=== PATIENT | female | born 1980 | race Caucasian/White ===

== ENCOUNTER 2016-09-29 21:32 | Emergency (ER) | payer MEDICAID ==
[2016-09-29 23:22] LABS: ABSOLUTE EOSINOPHILS # (AUTO) 0.1 10^3/uL (0.0-0.6); ABSOLUTE LYMPHOCYTES (AUTO) 1.5 10^3/uL (0.5-4.7); ABSOLUTE MONOCYTES (AUTO) 0.7 10^3/uL (0.1-1.4); ABSOLUTE NEUT (AUTO) 7.9 10^3/uL (1.7-8.2); BASOPHILS % (AUTO) 0.2 % (0-2); EOSINOPHILS % (AUTO) 1.1 % (0-6); HEMATOCRIT 41.8 % (36.0-47.0); HEMOGLOBIN 13.6 g/dL (12.0-15.5); LYMPHOCYTES % (AUTO) 14.6 % (13-45); MEAN CORPUSCULAR HEMOGLOBIN 30.6 pg (27.0-33.4); MEAN CORPUSCULAR HGB CONC 32.6 g/dL (32.0-36.0); MEAN CORPUSCULAR VOLUME 94 fl (80-97); MONOCYTES % (AUTO) 6.7 % (3-13); RED BLOOD COUNT 4.44 10^6/uL (3.72-5.28); RED CELL DISTRIBUTION WIDTH 13.9 % (11.5-14.0); SEGMENTED NEUTROPHILS % (AUTO) 77.4 % (42-78); WHITE BLOOD COUNT 10.3 10^3/uL (4.0-10.5)
[2016-09-29 23:36] LABS: ALANINE AMINOTRANSFERASE 24 U/L (9-52); ALBUMIN 4.3 g/dL (3.5-5.0); ALKALINE PHOSPHATASE 71 U/L (38-126); ANION GAP 14 (5-19); ASPARTATE AMINO TRANSFERASE 19 U/L (14-36); BILIRUBIN,DIRECT 0.3 mg/dL (0.0-0.4); BILIRUBIN,TOTAL 0.4 mg/dL (0.2-1.3); BLOOD UREA NITROGEN 20 mg/dL (7-20); CARBON DIOXIDE 25 mmol/L (22-30); CHLORIDE 103 mmol/L (98-107); CREATININE RESULT 0.64 mg/dL (0.52-1.25); GLUCOSE 98 mg/dL (75-110); LIPASE 112.5 U/L (23-300); POTASSIUM 4.1 mmol/L (3.6-5.0); SODIUM 141.6 mmol/L (137-145); TOTAL PROTEIN 7.6 g/dL (6.3-8.2)
[2016-09-30] MEDS ORDERED: LIDOCAINE 2% VISCOUS SOLN 20 ML UDCUP PO ONE (00:45)
[2016-09-30] MEDS ORDERED: METOCLOPRAMIDE HCL ORAL SOLN 10 MG/10 ML UDCUP PO ONE (00:45)
[2016-09-30] MEDS ORDERED: MAG HYDROX/AL HYDROX/SIMETH SUSP 30 ML UDCUP PO ONE (00:45)
--- NOTE | 2016-09-30 00:46 | ER Document Report ---
ED General - General Chief Complaint: Abdominal Pain Stated Complaint: ABDOMINAL PAIN/NAUSEA Time Seen by Provider: 09/30/16 00:14 Notes: Patient is a 35 year old female who presents with 2 weeks of intermittent, diffuse abdominal pain. Does describe it as a cramping, burning sensation. States it is worsened when she drinks carbonated beverages and improves on its own. She has a history of similar symptoms in the past without clear etiology. She has not seen her primary care doctor regarding today's concerns. She denies any fever, vomiting but notes that she has been nauseated. She denies any vaginal bleeding, dysuria, vaginal discharge, or lower abdominal pain that is focal. TRAVEL OUTSIDE OF THE [place] IN LAST 30 DAYS: No - Related Data Allergies/Adverse Reactions: levofloxacin [From Levaquin] Allergy (Severe, Verified 11/21/13 12:26) Anaphylaxis Past Medical History - General Information source: Patient - Social History Smoking Status: Never Smoker Frequency of alcohol use: None Drug Abuse: None Lives with: Spouse/Significant other Family History: Reviewed & Not Pertinent, CAD, CVA, DM, Hyperlipidemia, Hypertension, Thyroid Disfunction Pulmonary Medical History: Reports: Hx Asthma Renal/ Medical History: Reports: Hx Kidney Stones. Denies: Hx Peritoneal Dialysis Skin Medical History: Denies Hx MRSA Psychiatric Medical History: Reports: Hx Anxiety, Hx Depression Past Surgical History: Reports: Hx Tubal Ligation - Immunizations Immunizations up to date: Yes Hx Diphtheria, Pertussis, Tetanus Vaccination: Yes Review of Systems - Review of Systems Notes: Constitutional: Negative for fever. HENT: Negative for sore throat. Eyes: Negative for visual changes. Cardiovascular: Negative for chest pain. Respiratory: Negative for shortness of breath. Gastrointestinal: Positive for abdominal pain and nausea Genitourinary: Negative for dysuria. Musculoskeletal: Negative for back pain. Skin: Negative for rash. Neurological: Negative for headaches, weakness or numbness. 10 point ROS negative except as marked above and in HPI. Physical Exam - Vital signs Vitals: Temp Pulse Resp BP Pulse Ox 97.7 F 62 15 119/76 99 09/29/16 22:03 09/29/16 22:03 09/29/16 22:03 09/29/16 22:03 09/29/16 22:03 Interpretation: Normal Notes: PHYSICAL EXAMINATION: GENERAL: Well-appearing, well-nourished and in no acute distress. HEAD: Atraumatic, normocephalic. EYES: Pupils equal round and reactive to light, extraocular movements intact, sclera anicteric, conjunctiva are normal. ENT: nares patent, oropharynx clear without exudates. Moist mucous membranes. NECK: Normal range of motion, supple without lymphadenopathy LUNGS: Breath sounds clear to auscultation bilaterally and equal. No wheezes rales or rhonchi. HEART: Regular rate and rhythm without murmurs ABDOMEN: Soft, nontender, normoactive bowel sounds. No guarding, no rebound. No masses appreciated. EXTREMITIES: Normal range of motion, no pitting or edema. No cyanosis. NEUROLOGICAL: No focal neurological deficits. Moves all extremities spontaneously and on command. PSYCH: Normal mood, normal affect. SKIN: Warm, Dry, normal turgor, no rashes or lesions noted. Course - Re-evaluation Re-evalutation: 09/30/16 00:44 Presentation of generalized, intermittent abdominal pain. Abdominal exam is benign without any focal tenderness. Vitals are normal at the time of arrival. Laboratories are unremarkable without evidence of , or leukocytosis. Denies urinary symptoms or flank pain. Patient is overall very well in appearance. Based on clinical history and examination I do not suspect an acute appendicitis, tubo-ovarian abscess, related pathology, pelvic inflammatory disease, mesenteric ischemia, or pyelonephritis. At this time will discharge with return precautions and follow-up recommendations. Verbal discharge instructions given a the bedside and opportunity for questions given. Medication warnings reviewed. Patient is in agreement with this plan and has verbalized understanding of return precautions and the need for primary care follow-up in the next 24-72 hours. - Vital Signs Vital signs: Temp Pulse Resp BP Pulse Ox 97.7 F 78 16 105/65 100 09/30/16 01:00 09/30/16 01:00 09/30/16 01:00 09/30/16 01:00 09/30/16 01:00 - Laboratory Result Diagrams: 09/29/16 23:11 09/29/16 23:11 Discharge - Discharge Clinical Impression: Abdominal pain Qualifiers: Abdominal location: generalized Qualified Code(s): R10.84 - Generalized abdominal pain Condition: Good Disposition: HOME, SELF-CARE Additional Instructions: You have been seen in the Emergency Department (ED) for abdominal pain. Your evaluation did not identify a clear cause of your symptoms but was generally reassuring. Start taking famotidine 20 mg in the morning and 20 mg at night. This medication can be purchased directly [id number]. Take it for the next 2 weeks and see if this improves your symptoms. Please follow up with your doctor as soon as possible regarding today's emergent visit and the symptoms that are bothering you. Return to the ED if your abdominal pain worsens or fails to improve, you develop bloody vomiting, bloody diarrhea, you are unable to tolerate fluids due to vomiting, fever greater than 101, or other symptoms that concern you. Referrals: TRAV GOYAL MD [Primary Care Provider] - Follow up as needed
[2016-09-30 01:08] VITALS: BP 105/65
== END 2016-09-30 01:08 | disposition home or self-care (01) ==
LOC: ER 21:32
DX: R10.84 Generalized abdominal pain (principal); J45.909 Unspecified asthma, uncomplicated; Z88.1 Allergy status to other antibiotic agents; Z87.442 Personal history of urinary calculi; Z98.51 Tubal ligation status
CPT/HCPCS: 99284; 36415; 83690; 84703; 85025; 80053; J3490 ×3

== ENCOUNTER 2016-12-05 02:38 | Emergency (ER) | payer MEDICAID ==
--- NOTE | 2016-12-05 03:03 | ER Document Report ---
ED General - General Chief Complaint: Leg Pain Stated Complaint: LEG PAIN Time Seen by Provider: 12/05/16 02:52 Notes: Patient is a 35-year-old female comes emergency department with 2 complaints. First complaint is pain along the inner part of her right knee. Symptoms have been going on for about 1 month. She states frequently it hurts to walk and it hurts the worst when she gets up in the morning. She denies any remembered injury. She denies history of the same. Secondarily she reports that she has congestion, cough, and right-sided chest pain for a few days. She denies fever , difficulty breathing, vomiting, abdominal pain. She denies any daily medications. LMP about 6 weeks ago. She is not on contraceptive. TRAVEL OUTSIDE OF THE [place] IN LAST 30 DAYS: No - Related Data Allergies/Adverse Reactions: levofloxacin [From Levaquin] Allergy (Severe, Verified 11/21/13 12:26) Anaphylaxis Past Medical History - General Information source: Patient - Social History Smoking Status: Never Smoker Frequency of alcohol use: None Drug Abuse: None Lives with: Family Family History: Reviewed & Not Pertinent, CAD, CVA, DM, Hyperlipidemia, Hypertension, Thyroid Disfunction Patient has suicidal ideation: No Patient has homicidal ideation: No Pulmonary Medical History: Reports: Hx Asthma Renal/ Medical History: Reports: Hx Kidney Stones. Denies: Hx Peritoneal Dialysis Skin Medical History: Denies Hx MRSA Psychiatric Medical History: Reports: Hx Anxiety, Hx Depression Past Surgical History: Reports: Hx Tubal Ligation - Immunizations Immunizations up to date: Yes Hx Diphtheria, Pertussis, Tetanus Vaccination: Yes Review of Systems - Review of Systems Constitutional: No symptoms reported EENT: See HPI Cardiovascular: See HPI Respiratory: See HPI Gastrointestinal: No symptoms reported Genitourinary: No symptoms reported Female Genitourinary: No symptoms reported Musculoskeletal: See HPI Skin: No symptoms reported Hematologic/Lymphatic: No symptoms reported Neurological/Psychological: No symptoms reported Physical Exam - Vital signs Vitals: Temp Pulse Resp BP Pulse Ox 97.8 F 94 18 123/80 100 12/05/16 02:44 12/05/16 02:44 12/05/16 02:44 12/05/16 02:44 12/05/16 02:44 - General General appearance: Appears well In distress: None - HEENT Head: Normocephalic, Atraumatic Eyes: Normal Conjunctiva: Normal Eyelashes: Normal Pupils: PERRL Sinus: Maxillary - Bilateral mild maxillary sinus tenderness Nasal: Other - Mild bilateral nasal congestion Mouth/Lips: Normal Mucous membranes: Normal Pharynx: Erythema - Very mild. No: Exudate, Tonsillar hypertrophy, Uvular edema , Potential airway comprom. Neck: Normal - Respiratory Respiratory status: No respiratory distress Chest status: Tender - chest wall pain on the right mid anterior chest wall, reproducible, no crepitus, abnormal heat, or swelling Breath sounds: Normal. No: Decreased air movement, Wheezing - Cardiovascular Rhythm: Regular. No: Tachycardia Heart sounds: Normal auscultation, S1 appreciated, S2 appreciated - Abdominal Inspection: Normal Tenderness: Nontender. No: Tender, Guarding - Back Back: Normal, Nontender. No: Tender - Extremities General upper extremity: Normal inspection, Nontender, Normal ROM, Normal strength General lower extremity: Other - Patient with slight tenderness with Gabe testing of the right knee, there is a slight click when this is performed. Patient has full range of motion of the knee, there is some medial tenderness over the inferior aspect of the knee, no erythema, no abnormal heat, no significant swelling. Normal distal neurovascular exam. Normal lower extremity examination otherwise. - Neurological Neuro grossly intact: Yes Cognition: Normal Orientation: AAOx4 [place] Coma Scale Eye Opening: Spontaneous [place] Coma Scale Verbal: Oriented Court[place] Coma Scale Motor: Obeys Commands Court[place] Coma Scale Total: 15 Speech: Normal Motor strength normal: LUE, RUE, LLE, RLE Sensory: Normal - Psychological Associated symptoms: Normal affect, Normal mood - Skin Skin Temperature: Warm Skin Moisture: Dry Skin Color: Normal Course - Re-evaluation Re-evalutation: EKG shows sinus rhythm, no T-wave inversions or ST segment changes in consecutive leads, normal axis, unremarkable. Machine read as normal. Chest x- ray is also unremarkable. Patient with chest wall tenderness on examination of the right side of the chest. Knee x-rays unremarkable. Examination of the knee suggests a meniscal injury. Patient can ambulate without any difficulty. No significant tenderness. Does not require a brace. Giving anti-inflammatories, gave a handout from up-to- date website on meniscal tears, discussed treatment and exercises for this which were demonstrated, discussed orthopedic follow-up. Patient also has tenderness over the maxillary sinuses with symptoms of sinusitis. After discussion patient will be treated with antibiotics for this. Discussed primary care follow-up and return precautions. Patient states understanding and agreement. - Vital Signs Vital signs: Temp Pulse Resp BP Pulse Ox 97.8 F 78 18 110/78 98 12/05/16 02:44 12/05/16 04:34 12/05/16 04:34 12/05/16 04:34 12/05/16 04:34 Discharge - Discharge Clinical Impression: Cough Right knee pain Qualifiers: Chronicity: acute Qualified Code(s): M25.561 - Pain in right knee Sinusitis Qualifiers: Sinusitis location: maxillary Chronicity: acute Recurrence: non-recurrent Qualified Code(s): J01.00 - Acute maxillary sinusitis, unspecified Condition: Stable Disposition: HOME, SELF-CARE Additional Instructions: Your EKG, chest x-ray, and knee x-rays do not show any concerning abnormalities. Your examination is consistent with a sinus infection, I also suspect you have a meniscus tear based on your symptoms and your knee examination. I recommend taking the anti-inflammatory as prescribed, apply ice to your knee, perform muscles to strengthen your thigh muscle such as straight leg raises as you were shown. If symptoms continue I recommend following up with orthopedics. Take Augmentin antibiotic as prescribed for your sinuses. Return to emergency department for any concerning or worsening symptoms including difficulty breathing, redness of your knee, fever, or any other concerning symptoms. Prescriptions: Amox Tr/Potassium Clavulanate [Augmentin 875-125 Tablet] 1 tab PO BID 7 Days tablet Naproxen [Naprosyn 375 Mg Tablet] 375 mg PO BID #20 tablet Referrals: CONSUELO RAIN MD [ACTIVE STAFF] - Follow up as needed
--- NOTE | 2016-12-05 04:16 | RADIOLOGY REPORT (SQ) ---
EXAM DESCRIPTION: CHEST PA/LAT COMPLETED DATE/TIME: 12/05/2016 3:53 am REASON FOR STUDY: chest pain COMPARISON: 02.21.12 EXAM PARAMETERS: NUMBER OF VIEWS: two views TECHNIQUE: Digital Frontal and Lateral radiographic views of the chest acquired. RADIATION DOSE: NA LIMITATIONS: none FINDINGS: LUNGS AND PLEURA: No opacities, masses or pneumothorax. No pleural effusion. Mild hyperin flation. MEDIASTINUM AND HILAR STRUCTURES: No masses or contour abnormalities. HEART AND VASCULAR STRUCTURES: Heart normal size. No evidence for failure. BONES: No acute findings. HARDWARE: None in the chest. OTHER: No other significant finding. IMPRESSION: NO SIGNIFICANT RADIOGRAPHIC FINDING IN THE CHEST. TECHNICAL DOCUMENTATION: JOB ID: [id number] [employer]- All Rights Reserved
--- NOTE | 2016-12-05 04:17 | RADIOLOGY REPORT (SQ) ---
EXAM DESCRIPTION: KNEE RIGHT 4 VIEWS COMPLETED DATE/TIME: 12/05/2016 3:53 am REASON FOR STUDY: right knee pain (medial) COMPARISON: None. NUMBER OF VIEWS: Four views. TECHNIQUE: AP, lateral, and both oblique radiographic images acquired of the right knee. LIMITATIONS: None. FINDINGS: MINERALIZATION: Normal. BONES: No acute fracture or dislocation. No worrisome bone lesions. Small tug exostosis of the prox imal fibular diaphysis posteriorly. JOINT: No effusion. SOFT TISSUES: No soft tissue swelling. No radio-opaque foreign body. OTHER: No other significant finding. IMPRESSION: NEGATIVE STUDY OF THE RIGHT KNEE. NO RADIOGRAPHIC EVIDENCE OF ACUTE INJURY. TECHNICAL DOCUMENTATION: JOB ID: [id number] [employer]- All Rights Reserved
[2016-12-05 04:35] VITALS: BP 110/78
--- NOTE | 2016-12-05 21:04 | EKG REPORT ---
SEVERITY:- NORMAL ECG - SINUS RHYTHM : Confirmed by: Amie Ceballos 05-Dec-2016 21:03:40
== END 2016-12-05 04:34 | disposition home or self-care (01) ==
LOC: ER 02:38
DX: J01.00 Acute maxillary sinusitis, unspecified (principal); M25.561 Pain in right knee; R05 Cough
CPT/HCPCS: 71020; 81025; 93005; 93010; 99284

== ENCOUNTER 2017-10-16 18:44 | Emergency (ER) | payer MEDICAID ==
[2017-10-16 18:59] VITALS: BP 131/75
[2017-10-16] MEDS ORDERED: LIDOCAINE 2% VISCOUS SOLN 20 ML UDCUP PO ONE (19:32)
--- NOTE | 2017-10-16 19:35 | ER Document Report ---
HPI - HPI Patient complains to provider of: Toothache lower left side Onset: This morning Onset/Duration: Gradual Quality of pain: Throbbing Pain Level: 5 Context: 36-year-old with tooth decay has increased dental pain lower left second molar. Other molars have been extracted. No facial swelling or fever. Associated Symptoms: None Exacerbated by: Other - Chewing Relieved by: Denies Similar symptoms previously: Yes Recently seen / treated by doctor: No - ROS ROS below otherwise negative: Yes Systems Reviewed and Negative: Yes All other systems reviewed and negative - REPRODUCTIVE LMP: 10/07/2017 Reproductive: DENIES: : Past Medical History - General Information source: Patient - Social History Smoking Status: Current Every Day Smoker Chew tobacco use (# tins/day): No Frequency of alcohol use: None Drug Abuse: None Lives with: Family Family History: Reviewed & Not Pertinent, CAD, CVA, DM, Hyperlipidemia, Hypertension, Thyroid Disfunction Patient has suicidal ideation: No Patient has homicidal ideation: No Pulmonary Medical History: Reports: Hx Asthma Renal/ Medical History: Reports: Hx Kidney Stones. Denies: Hx Peritoneal Dialysis Skin Medical History: Denies Hx MRSA Psychiatric Medical History: Reports: Hx Anxiety, Hx Depression Past Surgical History: Reports: Hx Tubal Ligation - Immunizations Immunizations up to date: Yes Hx Diphtheria, Pertussis, Tetanus Vaccination: Yes Vertical Provider Document - CONSTITUTIONAL Agree With Documented VS: Yes Exam Limitations: No Limitations General Appearance: No Apparent Distress - INFECTION CONTROL TRAVEL OUTSIDE OF THE [place] IN LAST 30 DAYS: No - HEENT Notes: decay 2nd molar lower left. no abscess - NEURO Level of Consciousness: Alert - DERM Integumentary: No Rash Course - Vital Signs Vital signs: Temp Pulse Resp BP Pulse Ox 98.7 F 80 20 131/75 H 100 10/16/17 18:58 10/16/17 18:58 10/16/17 18:58 10/16/17 18:58 10/16/17 18:58 Discharge - Discharge Clinical Impression: dental pain and decay Condition: Good Disposition: HOME, SELF-CARE Instructions: [facility], Dentist, Penicillin V K (OM), Toothache (OM), Topical Lidocaine (OM), Warm Packs (OM) Additional Instructions: Warm compress Penicillin Motrin Tylenol Lidocaine to numb the area See the dentist Return to emergency room worsening of the symptoms Prescriptions: Ibuprofen [Motrin 800 mg Tablet] 800 mg PO Q8HP PRN #30 tablet PRN Reason: Penicillin V Potassium [Penicillin Vk 500 mg Tablet] 500 mg PO QID #40 tablet Referrals: TRAV GOYAL MD [Primary Care Provider] - Follow up as needed
== END 2017-10-16 19:43 | disposition home or self-care (01) ==
LOC: ER 18:44
DX: K08.89 Other specified disorders of teeth and supporting structures (principal)
CPT/HCPCS: 99282; J3490

== ENCOUNTER 2018-12-08 22:36 | Emergency (ER) | payer SELFPAY ==
[2018-12-09 00:05] LABS: ABSOLUTE EOSINOPHILS # (AUTO) 0.1 10^3/uL (0.0-0.6); ABSOLUTE LYMPHOCYTES (AUTO) 3.6 10^3/uL (0.5-4.7); ABSOLUTE MONOCYTES (AUTO) 1.2 10^3/uL (0.1-1.4); ABSOLUTE NEUT (AUTO) 4.5 10^3/uL (1.7-8.2); BASOPHILS % (AUTO) 0.4 % (0-2); EOSINOPHILS % (AUTO) 1.5 % (0-6); HEMATOCRIT 40.9 % (36.0-47.0); HEMOGLOBIN 13.9 g/dL (12.0-15.5); LYMPHOCYTES % (AUTO) 38.4 % (13-45); MEAN CORPUSCULAR HEMOGLOBIN 31.5 pg (27.0-33.4); MEAN CORPUSCULAR HGB CONC 33.9 g/dL (32.0-36.0); MEAN CORPUSCULAR VOLUME 93 fl (80-97); MONOCYTES % (AUTO) 12.2 % (3-13); PLATELET COUNT 303 10^3/uL (150-450); RED BLOOD COUNT 4.41 10^6/uL (3.72-5.28); RED CELL DISTRIBUTION WIDTH 14.4 % (11.5-14.0); SEGMENTED NEUTROPHILS % (AUTO) 47.5 % (42-78); TOTAL CELLS COUNTED % (AUTO) 100 %; WHITE BLOOD COUNT 9.4 10^3/uL (4.0-10.5)
[2018-12-09 00:26] LABS: APPEARANCE,URINE SLIGHTLY-CLOUDY; BILIRUBIN,URINE NEGATIVE (NEGATIVE); COLOR,URINE YELLOW; GLUCOSE, URINE NEGATIVE (NEGATIVE); KETONES,URINE NEGATIVE (NEGATIVE); LEUKOCYTE ESTERASE,URINE SMALL (NEGATIVE); NITRITE,URINE POSITIVE (NEGATIVE); PROTEIN,URINE NEGATIVE (NEGATIVE); URINE BARBITURATES SCREEN NEGATIVE; URINE BENZODIAZEPINES SCREEN UNCONFIRMED POSITIVE; URINE COCAINE SCREEN NEGATIVE; URINE MARIJUANA (THC) SCREEN NEGATIVE; URINE METHADONE SCREEN NEGATIVE; URINE PHENCYCLIDINE SCREEN NEGATIVE; URINE SPECIFIC GRAVITY 1.026; UROBILINOGEN,URINE NEGATIVE mg/dL (<2.0)
[2018-12-09 00:33] LABS: ALBUMIN 4.3 g/dL (3.5-5.0); ALKALINE PHOSPHATASE 76 U/L (38-126); ANION GAP 12 (5-19); ASPARTATE AMINO TRANSFERASE 29 U/L (14-36); BILIRUBIN,DIRECT 0.2 mg/dL (0.0-0.4); BILIRUBIN,TOTAL 0.3 mg/dL (0.2-1.3); BLOOD UREA NITROGEN 21 mg/dL (7-20); CALCIUM 9.7 mg/dL (8.4-10.2); CARBON DIOXIDE 23 mmol/L (22-30); CHLORIDE 104 mmol/L (98-107); GLUCOSE 82 mg/dL (75-110); POTASSIUM 3.9 mmol/L (3.6-5.0)
[2018-12-09 00:35] LABS: ACETAMINOPHEN < 10 ug/mL (10-30); ALCOHOL < 10 mg/dL (NONE DETECTED); SALICYLATE < 1.0 mg/dL (2.0-20.0)
[2018-12-09] MEDS ORDERED: CEPHALEXIN 500 MG CAPSULE PO ONE (02:25)
--- NOTE | 2018-12-09 06:58 | EKG REPORT ---
SEVERITY:- NORMAL ECG - SINUS RHYTHM : Confirmed by: Zia Campbell MD 09-Dec-2018 06:57:59
--- NOTE | 2018-12-09 07:30 | ER Document Report ---
ED Psych Disorder / Suicide - General TRAVEL OUTSIDE OF THE [place] IN LAST 30 DAYS: No <NAYA MILLER - Last Filed: 12/09/18 20:15> <JANNETTE MCCARTHY - Last Filed: 12/11/18 20:24> - General Chief Complaint: Psych Problem Stated Complaint: IVC Time Seen by Provider: 12/09/18 00:42 Notes: Patient is a 37-year-old female presents to the emergency department with IVC paperwork already filled out by mansi Zhu. IVC paperwork states that the patient is hearing children and babies crying that are asking her for help. Patient believes that there are people in her [place] and there are cameras watching her. Patient voices to me when the Police Department picked her up she felt as though she would like to jump out of the car and run into traffic. Patient is calm and cooperative during assessment. Patient's denying any homicidal ideations. Patient's denying any chest pain, nausea, vomiting, diarrhea, abdominal pain, dysuria. (NAYA MILLER) - Related Data Allergies/Adverse Reactions: levofloxacin [From Levaquin] Allergy (Severe, Verified 10/16/17 18:45) Anaphylaxis Past Medical History - General Information source: Patient, Transfer Record - Social History Smoking Status: Current Every Day Smoker Chew tobacco use (# tins/day): No Frequency of alcohol use: None Drug Abuse: None Family History: Reviewed & Not Pertinent, CAD, CVA, DM, Hyperlipidemia, Hypertension, Thyroid Disfunction Patient has suicidal ideation: Yes Patient has homicidal ideation: No Pulmonary Medical History: Reports: Hx Asthma Renal/ Medical History: Reports: Hx Kidney Stones. Denies: Hx Peritoneal Beth lysis Skin Medical History: Denies Hx MRSA Psychiatric Medical History: Reports: Hx Anxiety, Hx Depression Past Surgical History: Reports: Hx Tubal Ligation - Immunizations Immunizations up to date: Yes Hx Diphtheria, Pertussis, Tetanus Vaccination: Yes <NAYA MILLER - Last Filed: 12/09/18 20:15> Review of Systems - Review of Systems Constitutional: denies: Fever EENT: No symptoms reported Cardiovascular: No symptoms reported Respiratory: No symptoms reported Gastrointestinal: No symptoms reported Genitourinary: No symptoms reported Female Genitourinary: No symptoms reported Musculoskeletal: No symptoms reported Skin: No symptoms reported Hematologic/Lymphatic: No symptoms reported Neurological/Psychological: See HPI <SAMEER MILLERCYNTHIADANA - Last Filed: 12/09/18 20:15> Physical Exam <NAYA MILLER - Last Filed: 12/09/18 20:15> - Vital signs Vitals: Temp Pulse Resp BP Pulse Ox 98.0 F 97 18 96/78 L 98 12/08/18 23:00 12/08/18 23:00 12/08/18 23:00 12/08/18 23:00 12/08/18 23:00 - Notes Notes: GENERAL: Alert, interacts well. No acute distress. HEAD: Normocephalic, atraumatic. EYES: Pupils equal, round, and reactive to light. Extraocular movements intact. ENT: Oral mucosa moist, tongue midline. NECK: Full range of motion. Supple. Trachea midline. LUNGS: Clear to auscultation bilaterally, no wheezes, rales, or rhonchi. No respiratory distress. HEART: Regular rate and rhythm. No murmur ABDOMEN: Soft, non-tender. Non-distended. Bowel sounds present in all 4 quadrants. EXTREMITIES: Moves all 4 extremities spontaneously. No edema, normal radial and dorsalis pedis pulses bilaterally. No cyanosis. BACK: no cervical, thoracic, lumbar midline tenderness. No saddle anesthesia, normal distal neurovascular exam. NEUROLOGICAL: Alert and oriented x3. Normal speech. cranial nerves II through XII grossly intact PSYCH: Flat affect, depressed mood. SKIN: Warm, dry, normal turgor. No rashes or lesions noted. (PAULNAYA) Course - Laboratory Result Diagrams: 12/08/18 23:35 12/08/18 23:35 <NAYA MILLER - Last Filed: 12/09/18 20:15> - Laboratory Result Diagrams: 12/08/18 23:35 12/08/18 23:35 <JANNETTE MCCARTHY - Last Filed: 12/11/18 20:24> - Re-evaluation Re-evalutation: 12/09/18 07:29 Laboratory 12/08/18 12/08/18 12/08/18 23:35 23:35 23:35 WBC 9.4 RBC 4.41 Hgb 13.9 Hct 40.9 MCV 93 MCH 31.5 MCHC 33.9 RDW 14.4 H Plt Count 303 Lymph % (Auto) 38.4 Cecil % (Auto) 12.2 Eos % (Auto) 1.5 Baso % (Auto) 0.4 Absolute Neuts (auto) 4.5 Absolute Lymphs (auto) 3.6 Absolute Monos (auto) 1.2 Absolute Eos (auto) 0.1 Absolute Basos (auto) 0.0 Seg Neutrophils % 47.5 Sodium 138.5 Potassium 3.9 Chloride 104 Carbon Dioxide 23 Anion Gap 12 BUN 21 H Creatinine 0.73 Est GFR ( Amer) > 60 Est GFR (MDRD) Non-Af > 60 Glucose 82 Calcium 9.7 Total Bilirubin 0.3 Direct Bilirubin 0.2 Neonat Total Bilirubin Not Reportable Neonat Direct Bilirubin Not Reportable Neonat Indirect Bili Not Reportable AST 29 ALT 15 Alkaline Phosphatase 76 Total Protein 7.0 Albumin 4.3 Serum HCG, Qual NEGATIVE Urine Color Urine Appearance Urine pH Ur Specific Mabel Urine Protein Urine Glucose (UA) Urine Ketones Urine Blood Urine Nitrite Urine Bilirubin Urine Urobilinogen Ur Leukocyte Esterase Urine WBC (Auto) Urine RBC (Auto) Urine Bacteria (Auto) Squamous Epi Cells Auto Urine Ascorbic Acid Salicylates < 1.0 L Urine Opiates Screen Urine Methadone Screen Acetaminophen < 10 L Ur Barbiturates Screen Ur Phencyclidine Scrn Ur Amphetamines Screen U Benzodiazepines Scrn Urine Cocaine Screen U Marijuana (THC) Screen Serum Alcohol < 10 12/08/18 12/08/18 23:35 23:35 WBC RBC Hgb Hct MCV MCH MCHC RDW Plt Count Lymph % (Auto) Cecil % (Auto) Eos % (Auto) Baso % (Auto) Absolute Neuts (auto) Absolute Lymphs (auto) Absolute Monos (auto) Absolute Eos (auto) Absolute Basos (auto) Seg Neutrophils % Sodium Potassium Chloride Carbon Dioxide Anion Gap BUN Creatinine Est GFR ( Amer) Est GFR (MDRD) Non-Af Glucose Calcium Total Bilirubin Direct Bilirubin Neonat Total Bilirubin Neonat Direct Bilirubin Neonat Indirect Bili AST ALT Alkaline Phosphatase Total Protein Albumin Serum HCG, Qual Urine Color YELLOW Urine Appearance SLIGHTLY-CLOUDY Urine pH 5.0 Ur Specific Mabel 1.026 Urine Protein NEGATIVE Urine Glucose (UA) NEGATIVE Urine Ketones NEGATIVE Urine Blood MODERATE H Urine Nitrite POSITIVE H Urine Bilirubin NEGATIVE Urine Urobilinogen NEGATIVE Ur Leukocyte Esterase SMALL H Urine WBC (Auto) 11 Urine RBC (Auto) 5 Urine Bacteria (Auto) 3+ Squamous Epi Cells Auto 1 Urine Ascorbic Acid NEGATIVE Salicylates Urine Opiates Screen NEGATIVE Urine Methadone Screen NEGATIVE Acetaminophen Ur Barbiturates Screen NEGATIVE Ur Phencyclidine Scrn NEGATIVE Ur Amphetamines Screen U Benzodiazepines Scrn UNCONFIRMED POSITIVE Urine Cocaine Screen NEGATIVE U Marijuana (THC) Screen NEGATIVE Serum Alcohol Patient's urine does show signs of infection, will treat with initial dose of Keflex in the emergency department. Patient currently medically cleared for psychiatric evaluation. (NAYA MILLER) - Vital Signs Vital signs: Temp Pulse Resp BP Pulse Ox 98.5 F 80 14 126/74 H 100 12/11/18 18:00 12/11/18 18:00 12/11/18 14:27 12/11/18 18:00 12/11/18 18:00 - Laboratory Laboratory results interpreted by me: 12/08/18 12/08/18 12/08/18 23:35 23:35 23:35 RDW 14.4 H BUN 21 H Urine Blood MODERATE H Urine Nitrite POSITIVE H Ur Leukocyte Esterase SMALL H Salicylates < 1.0 L Acetaminophen < 10 L Discharge <NAYA MILLER - Last Filed: 12/09/18 20:15> <JANNETTE MCCARTHY - Last Filed: 12/11/18 20:24> - Discharge Clinical Impression: Suicidal ideation Urinary tract infection Qualifiers: Urinary tract infection type: acute cystitis Hematuria presence: without hematuria Qualified Code(s): N30.00 - Acute cystitis without hematuria Schizophrenia Qualifiers: Schizophrenia type: unspecified Qualified Code(s): F20.9 - Schizophrenia, unspecified Condition: Stable Disposition: PSYCH HOSP/UNIT Prescriptions: Cephalexin Monohydrate [Keflex 500 mg Capsule] 500 mg PO BID 7 Days #14 capsule
--- NOTE | 2018-12-09 09:11 | PSYCHOLOGICAL NOTE ---
Psych Note - Psych Note Date seen by psych provider: 12/09/18 Time seen by psych provider: 07:45 Psych Note: Substance abuse Medication recommendations per [facility]'s contracted psychiatrist Dr. Raeann NEVES are as follows Thorazine 50 mg every 6 hours Cogentin 1 mg daily Impression\plan: Patient is recommended to continue under IVC. Patient is experiencing auditory and visual hallucinations, as well as delusional thought processes due to methamphetamine use. Medication recommendations have been provided. Patient will be reevaluated per Dr. Dodd was consulted and the care management of this patient; attending physicians in agreement with recommendations and disposition.
--- NOTE | 2018-12-09 10:02 | ER Document Report ---
Doctor's Note Notes: 12/09/18 10:01 37-year-old female who presents with hallucinations. Possible urinary tract infection. Keflex has been started. The psychology/psychiatry team is seen and assessed the patient would like to start the patient on Thorazine and Cogentin. Urine culture is pending.
[2018-12-09] MEDS: BENZTROPINE MESYLATE 1 MG TABLET PO SCH (10:30)
[2018-12-09] MEDS: CHLORPROMAZINE HCL 50 MG TABLET PO SCH ×3 (10:31→23:06)
[2018-12-09] MEDS: CEPHALEXIN 500 MG CAPSULE PO SCH ×2 (14:40→23:06)
[2018-12-10] MEDS: CHLORPROMAZINE HCL 50 MG TABLET PO SCH ×2 (04:50→09:39)
[2018-12-10] MEDS: BENZTROPINE MESYLATE 1 MG TABLET PO SCH (09:01)
[2018-12-10] MEDS: CEPHALEXIN 500 MG CAPSULE PO SCH ×2 (09:01→18:21)
[2018-12-10] MEDS ORDERED: CHLORPROMAZINE HCL 50 MG TABLET PO PRN (09:52)
--- NOTE | 2018-12-10 10:20 | ER Document Report ---
Doctor's Note Notes: 12/10/18 10:18 I wanted to evaluate the patient. She was sleeping. She woke easily to verbal stimuli. Asked her if she had any questions or concerns, she denied any. However, she refused to talk at all beyond that. She states she is not interested in talking to psychosocial for evaluation. She did eat a small amount of her breakfast, otherwise refused to engage. She had herself back under the blankets. At this point patient refuses to engage in any sort of evaluation. Based on this, agree with placement.
--- NOTE | 2018-12-10 16:28 | PSYCHOLOGICAL NOTE ---
Psych Note - Psych Note Date seen by psych provider: 12/10/18 Time seen by psych provider: 08:05 Psych Note: Substance abuse R/O bipolar disorder Medication recommendations per [facility]'s contracted psychiatrist Dr. Raeann NEVES are as follows Thorazine 50 mg every 6 hours as needed Cogentin 1 mg daily Impression\plan: Patient is recommended continue under IVC. Patient refuses to engage with clinician. Patient is very irritable continues to sleep. Medication recommendations have been adjusted. There is some concern the patient has been experiencing increase in depression that she verbalized suicidal ideation upon initial arrival however does not discussed further. Patient will be reevaluated. Dr. Dodd was consulted and the care management of this patient; attending physicians in agreement with recommendations and disposition.
[2018-12-11] MEDS: CEPHALEXIN 500 MG CAPSULE PO SCH ×2 (09:13→17:50)
[2018-12-11] MEDS: BENZTROPINE MESYLATE 1 MG TABLET PO SCH (09:14)
--- NOTE | 2018-12-11 12:35 | ER Document Report ---
Doctor's Note Notes: 12/11/18 12:34 Patient remains here in the hospital awaiting placement. She still refuses to speak to me. She states that she "knows why this is happening" and states it has nothing to do with the manner in which she presented here. I asked her if she would elaborate, she refuses. Otherwise she states she has no other official complaints or concerns. She is eating and drinking. No questions today. Is a very guarded 37-year-old female who appears older than her stated age. This is a 37-year-old female who presents with psychosis, likely substance abuse related. The patient refuses to engage in any way. Awaiting placement.
--- NOTE | 2018-12-11 13:02 | PSYCHOLOGICAL NOTE ---
Psych Note - Psych Note Date seen by psych provider: 12/11/18 Time seen by psych provider: 08:33 - Chart review at 0833. Evaluation from 925- 930. Psych Note: Presenting Problem: IVC, meth induced psychosis, delusional, paranoid, SI. Continued to endorse delusional thought processes today about "the people who aren't from around here that moved in by her parents, she hears babies crying out to her mother, knows these people are holding the kids under the house, to rturing then, she's meant to hear it, others hear it but don't want to admit it and that's why those people have put her here." She denied previous MH hospitalizations. She stated this was not related to meth use and commented "I don't do it like that anymore, I have never experienced anything like this before, I am not lying I am a 39 year old woman with 2 children of my own." The TV was on with news and this seemed to distract her even immediately upon waking up. Diagnosis: Methamphetamine Induced Psychotic Disorder R/O Bipolar Disorder Impression/Plan: Recommendation to maintain IVC. Patient continued to endorse delusional thinking. She became irritable but was still cooperative. She continued to sleep most of the day. Consulted with Dr. Dodd regarding the management and care of patient. ED Physician in agreement with recommendations.
[2018-12-11 19:26] VITALS: BP 126/74
--- NOTE | 2018-12-11 20:23 | ER Document Report ---
Doctor's Note Notes: 12/11/18 20:22 Patient has been accepted by psychiatry at [facility] for schizophrenia and suicidal ideation. She is stable for transport, she has called her family to let her know that she is being transported. Patient still disagrees with choice to transport her. [facility]'s department is at bedside transport her at this time.
== END 2018-12-11 20:20 ==
LOC: ER 22:36
DX: R45.851 Suicidal ideations (principal); F20.9 Schizophrenia, unspecified; N30.00 Acute cystitis without hematuria; F17.200 Nicotine dependence, unspecified, uncomplicated; Z98.51 Tubal ligation status
CPT/HCPCS: 36415; 80053; 80307; 81001; 84703; 85025; 87086; 87088; 87186; 93005; 93010; 99285

== ENCOUNTER 2020-02-01 18:38 | Emergency (ER) | payer SELFPAY ==
[2020-02-01 19:09] VITALS: BP 119/81
--- NOTE | 2020-02-01 19:31 | ER Document Report ---
ED Medical Screen (RME) - General Chief Complaint: Flank Pain Stated Complaint: RIGHT FLANK PAIN Time Seen by Provider: 02/01/20 19:28 Mode of Arrival: Ambulatory Information source: Patient Notes: 39-year-old female patient with history of kidney stones presenting to the emergency department chief complaint of right flank pain. Patient reports pain ongoing for the last 2 to 3 weeks. She reports dysuria and urinary frequency. Denies any fever or chills. Has not had any nausea, vomiting or diarrhea. Patient alert, oriented, no acute distress noted. Smiling in triage. I have greeted and performed a rapid initial assessment of this patient. A comprehensive ED assessment and evaluation of the patient, analysis of test results and completion of the medical decision making process will be conducted by additional ED providers. I have specifically instructed the patient or family members with the patient to immediately return to any nursing staff should anything change in the patient's condition or with their chief complaint. TRAVEL OUTSIDE OF THE [place] IN LAST 30 DAYS: No - Related Data Allergies/Adverse Reactions: levofloxacin [From Levaquin] Allergy (Severe, Verified 10/16/17 18:45) Anaphylaxis Past Medical History - Social History Family history: Reviewed & Not Pertinent Pulmonary Medical History: Reports: Hx Asthma Renal/ Medical History: Reports: Hx Kidney Stones. Denies: Hx Peritoneal Dialysis Skin Medical History: Denies Hx MRSA Psychiatric Medical History: Reports: Hx Anxiety, Hx Depression Past Surgical History: Reports: Hx Tubal Ligation - Immunizations Immunizations up to date: Yes Hx Diphtheria, Pertussis, Tetanus Vaccination: Yes Physical Exam - Vital signs Vitals: Temp Pulse Resp BP Pulse Ox 98.1 F 83 16 119/81 99 02/01/20 19:08 02/01/20 19:08 02/01/20 19:08 02/01/20 19:08 02/01/20 19:08 Course - Vital Signs Vital signs: Temp Pulse Resp BP Pulse Ox 98.1 F 83 16 119/81 99 02/01/20 19:08 02/01/20 19:08 02/01/20 19:08 02/01/20 19:08 02/01/20 19:08
[2020-02-01 20:07] LABS: ABSOLUTE EOSINOPHILS # (AUTO) 0.5 10^3/uL (0.0-0.6); ABSOLUTE LYMPHOCYTES (AUTO) 3.4 10^3/uL (0.5-4.7); ABSOLUTE MONOCYTES (AUTO) 0.9 10^3/uL (0.1-1.4); ABSOLUTE NEUT (AUTO) 3.5 10^3/uL (1.7-8.2); BASOPHILS % (AUTO) 0.4 % (0-2); EOSINOPHILS % (AUTO) 5.6 % (0-6); HEMATOCRIT 39.5 % (36.0-47.0); HEMOGLOBIN 13.5 g/dL (12.0-15.5); LYMPHOCYTES % (AUTO) 40.8 % (13-45); MEAN CORPUSCULAR HEMOGLOBIN 31.7 pg (27.0-33.4); MEAN CORPUSCULAR HGB CONC 34.1 g/dL (32.0-36.0); MEAN CORPUSCULAR VOLUME 93 fl (80-97); MONOCYTES % (AUTO) 10.9 % (3-13); PLATELET COUNT 292 10^3/uL (150-450); RED BLOOD COUNT 4.25 10^6/uL (3.72-5.28); RED CELL DISTRIBUTION WIDTH 14.2 % (11.5-14.0); SEGMENTED NEUTROPHILS % (AUTO) 42.3 % (42-78); TOTAL CELLS COUNTED % (AUTO) 100 %; WHITE BLOOD COUNT 8.3 10^3/uL (4.0-10.5)
[2020-02-01 20:15] LABS: APPEARANCE,URINE SLIGHTLY-CLOUDY; BILIRUBIN,URINE NEGATIVE (NEGATIVE); CALCIUM OXALATE CRYSTALS,URINE MANY /HPF; COLOR,URINE YELLOW; GLUCOSE, URINE NEGATIVE (NEGATIVE); KETONES,URINE NEGATIVE (NEGATIVE); LEUKOCYTE ESTERASE,URINE SMALL (NEGATIVE); NITRITE,URINE POSITIVE (NEGATIVE); PROTEIN,URINE NEGATIVE (NEGATIVE); URINE SPECIFIC GRAVITY 1.026; UROBILINOGEN,URINE NEGATIVE mg/dL (<2.0)
[2020-02-01 20:26] LABS: ALBUMIN 3.8 g/dL (3.5-5.0); ALKALINE PHOSPHATASE 70 U/L (38-126); ANION GAP 7 (5-19); ASPARTATE AMINO TRANSFERASE 19 U/L (14-36); BILIRUBIN,DIRECT 0.3 mg/dL (0.0-0.4); BILIRUBIN,TOTAL 0.3 mg/dL (0.2-1.3); BLOOD UREA NITROGEN 17 mg/dL (7-20); CALCIUM 8.7 mg/dL (8.4-10.2); CARBON DIOXIDE 26 mmol/L (22-30); CHLORIDE 105 mmol/L (98-107); GLUCOSE 75 mg/dL (75-110); POTASSIUM 4.3 mmol/L (3.6-5.0); TOTAL PROTEIN 6.8 g/dL (6.3-8.2)
== END 2020-02-01 21:53 | disposition left against medical advice (07) ==
LOC: ER 18:38
DX: R10.9 Unspecified abdominal pain (principal); Z87.442 Personal history of urinary calculi; Z98.51 Tubal ligation status
CPT/HCPCS: 36415; 80053; 81001; 81025; 85025; 99281

== ENCOUNTER 2020-02-24 23:43 | Emergency (ER) | payer SELFPAY ==
[2020-02-24 23:48] VITALS: BP 140/88
--- NOTE | 2020-02-24 23:55 | ER Document Report ---
ED Medical Screen (RME) - General Chief Complaint: Nausea Stated Complaint: BODY ACHES,SHORTNESS OF BREATH,HEADACHE Time Seen by Provider: 02/24/20 23:53 Mode of Arrival: Ambulatory Information source: Patient Notes: Patient is a 39-year-old female comes emergency room with multiple somatic complaints. Patient states that for the past month or so she has had chilling on the right side of her body, she has had urgency of urine and some minor vaginal discharge she has just have an overall feeling of fatigue. Patient denies any past medical history and currently takes no medications. She is not sexually active. She is also complains of a headache. Physical examination: Patient is a well-nourished well-developed 39-year-old female no apparent distress on examination this morning. Cardiac: Patient is slightly tachycardic at 108 bpm Lungs: Bilateral breath sounds with breath sounds decreased throughout no rhonchi rales or wheeze heard. Abdomen: In the sitting position patient has bowel sounds present all 4 quads it is nontender to palpate with the exception of suprapubically in a sitting position she has some mild discomfort. I have greeted and performed a rapid initial assessment of this patient. A comprehensive ED assessment and evaluation of the patient, analysis of test results and completion of the medical decision making process will be conducted by additional ED providers. Dictation of this chart was performed using voice recognition software; therefore, there may be some unintended grammatical errors. TRAVEL OUTSIDE OF THE [place] IN LAST 30 DAYS: No - Related Data Allergies/Adverse Reactions: levofloxacin [From Levaquin] Allergy (Severe, Verified 10/16/17 18:45) Anaphylaxis Past Medical History - Social History Frequency of alcohol use: None Drug Abuse: None Family history: Reviewed & Not Pertinent Pulmonary Medical History: Reports: Hx Asthma Renal/ Medical History: Reports: Hx Kidney Stones. Denies: Hx Peritoneal Dialysis Skin Medical History: Denies Hx MRSA Psychiatric Medical History: Reports: Hx Anxiety, Hx Depression Past Surgical History: Reports: Hx Tubal Ligation - Immunizations Immunizations up to date: Yes Hx Diphtheria, Pertussis, Tetanus Vaccination: Yes Physical Exam - Vital signs Vitals: Temp Pulse Resp BP Pulse Ox 97.5 F 108 H 18 140/88 H 100 02/24/20 23:46 02/24/20 23:46 02/24/20 23:46 02/24/20 23:46 02/24/20 23:46 Course - Vital Signs Vital signs: Temp Pulse Resp BP Pulse Ox 97.5 F 108 H 18 140/88 H 100 02/24/20 23:46 02/24/20 23:46 02/24/20 23:46 02/24/20 23:46 02/24/20 23:46
[2020-02-25 00:44] LABS: ABSOLUTE EOSINOPHILS # (AUTO) 0.8 10^3/uL (0.0-0.6); ABSOLUTE MONOCYTES (AUTO) 1.1 10^3/uL (0.1-1.4); ABSOLUTE NEUT (AUTO) 4.2 10^3/uL (1.7-8.2); BASOPHILS % (AUTO) 0.4 % (0-2); EOSINOPHILS % (AUTO) 7.6 % (0-6); HEMATOCRIT 37.9 % (36.0-47.0); LYMPHOCYTES % (AUTO) 39.3 % (13-45); MEAN CORPUSCULAR HEMOGLOBIN 31.5 pg (27.0-33.4); MEAN CORPUSCULAR HGB CONC 34.2 g/dL (32.0-36.0); MEAN CORPUSCULAR VOLUME 92 fl (80-97); MONOCYTES % (AUTO) 10.9 % (3-13); PLATELET COUNT 327 10^3/uL (150-450); RED BLOOD COUNT 4.12 10^6/uL (3.72-5.28); RED CELL DISTRIBUTION WIDTH 14.8 % (11.5-14.0); SEGMENTED NEUTROPHILS % (AUTO) 41.8 % (42-78); TOTAL CELLS COUNTED % (AUTO) 100 %; WHITE BLOOD COUNT 10.1 10^3/uL (4.0-10.5)
[2020-02-25] MEDS ORDERED: KETOROLAC TROMETHAMINE INJ/PF 30 MG/1 ML SDV IV ONE (01:24)
[2020-02-25] MEDS ORDERED: NORMAL SALINE 1000 ML 1,000 ML IV ONE ×2 (01:24→03:11)
[2020-02-25] MEDS ORDERED: ONDANSETRON HCL INJ/PF 4 MG/2 ML SDV IV ONE (01:25)
[2020-02-25 01:27] LABS: ALBUMIN 4.2 g/dL (3.5-5.0); ALKALINE PHOSPHATASE 70 U/L (38-126); ANION GAP 8 (5-19); ASPARTATE AMINO TRANSFERASE 19 U/L (14-36); BILIRUBIN,DIRECT 0.1 mg/dL (0.0-0.4); BILIRUBIN,TOTAL 0.2 mg/dL (0.2-1.3); BLOOD UREA NITROGEN 21 mg/dL (7-20); CALCIUM 9.6 mg/dL (8.4-10.2); CARBON DIOXIDE 27 mmol/L (22-30); CHLORIDE 103 mmol/L (98-107); GLUCOSE 85 mg/dL (75-110); POTASSIUM 4.9 mmol/L (3.6-5.0); TOTAL PROTEIN 6.9 g/dL (6.3-8.2)
--- NOTE | 2020-02-25 01:27 | ER Document Report ---
ED General - General Chief Complaint: Nausea Stated Complaint: BODY ACHES,SHORTNESS OF BREATH,HEADACHE Time Seen by Provider: 02/24/20 23:53 Mode of Arrival: Ambulatory TRAVEL OUTSIDE OF THE [place] IN LAST 30 DAYS: No - HPI Context: This is a 39-year-old female presenting to the emergency department complaining of headache, myalgias, shortness of breath, suprapubic pain, hesitancy with urination, frequent urination, sensation that she is not emptying her bladder and generalized fatigue. Patient states she has felt this way for over a month. Patient states she does have a regular doctor but has not seen her regular provider for the issues that she is having. Patient is complaining of headache in the region of her occiput, describes it as throbbing and rates it as a 3 out of scale 0-5 in terms of pain. Patient denies alleviating factors. Patient denies exacerbating factors. Patient denies loss of sense of taste or loss of sense of smell, denies history of COVID-19 infection, denies known exposure to COVID-19 positive persons or persons under investigation for COVID-19. Patient states she smokes cigarettes occasionally, denies drinking alcohol and denies drug use. Patient states she also feels nauseated. Associated symptoms: Other - See HPI Exacerbated by: Other - See HPI Relieved by: Other - See HPI - Related Data Allergies/Adverse Reactions: levofloxacin [From Levaquin] Allergy (Severe, Verified 10/16/17 18:45) Anaphylaxis Past Medical History - General Information source: Patient - Social History Smoking Status: Current Every Day Smoker Frequency of alcohol use: None Drug Abuse: None Family History: Reviewed & Not Pertinent, CAD, CVA, DM, Hyperlipidemia, Hypertension, Thyroid Disfunction Patient has homicidal ideation: No Pulmonary Medical History: Reports: Hx Asthma Renal/ Medical History: Reports: Hx Kidney Stones. Denies: Hx Peritoneal Dialysis Skin Medical History: Denies Hx MRSA Psychiatric Medical History: Reports: Hx Anxiety, Hx Depression Past Surgical History: Reports: Hx Tubal Ligation - Immunizations Immunizations up to date: Yes Hx Diphtheria, Pertussis, Tetanus Vaccination: Yes Review of Systems - Review of Systems Constitutional: See HPI, Malaise, Weakness EENT: No symptoms reported Cardiovascular: denies: Chest pain Respiratory: Short of breath. denies: Cough Gastrointestinal: No symptoms reported Genitourinary: See HPI, Dysuria, Frequency Female Genitourinary: Other - Patient states that she has had not had intercourse with her boyfriend in over a month and does not think she is Musculoskeletal: Muscle pain Skin: No symptoms reported Hematologic/Lymphatic: No symptoms reported Neurological/Psychological: No symptoms reported -: Yes All other systems reviewed and negative Physical Exam - Vital signs Vitals: Temp Pulse Resp BP Pulse Ox 97.5 F 108 H 18 140/88 H 100 02/24/20 23:46 02/24/20 23:46 02/24/20 23:46 02/24/20 23:46 02/24/20 23:46 - Notes Notes: CONSTITUTIONAL [Vital signs reviewed, Patient appears comfortable, Alert and oriented X 3, Normal stature.] HEAD [Atraumatic, Normocephalic.] EYES [Eyes are normal to inspection, No discharge from eyes, Extraocular muscles intact, Sclera are normal, Conjunctiva are normal.] ENT [External ears normal to inspection, Nose examination normal, Mouth normal to inspection.] NECK [Normal ROM, No jugular venous distention, No meningeal signs, ] RESPIRATORY CHEST [Chest is nontender, Breath sounds normal, No respiratory distress.] CARDIOVASCULAR [RRR, No murmurs, Normal S1 S2, No rub, No gallop.] ABDOMEN [Abdomen is nontender, No pulsatile masses, No other masses, Bowel sounds normal, No distension, No peritoneal signs, No hernias.] BACK [There is no CVA Tenderness, There is no tenderness to palpation, Normal inspection.] UPPER EXTREMITY [Inspection normal, No cyanosis, No clubbing, No edema, LOWER EXTREMITY [Inspection normal, No cyanosis, No clubbing, No edema, No calf tenderness, NEURO [No focal motor deficits, No focal sensory deficits, Speech normal.] SKIN [Skin is warm, Skin is dry, Skin is normal color.] PSYCHIATRIC [Normal affect. ] Course - Re-evaluation Re-evalutation: 02/25/20 04:33 This MD was informed that the patient abruptly got out of her bed and walked out of the emergency department with a anger expression on her face. The nurse stated she left at 0407. Oddly enough, the patient's demeanor which was initially pleasant and cooperative changed after the nurse no trauma multiple times to get the patient to produce any urine sample. The patient refused to produce a urine sample several times and eventually demanded that her IV be take n out. This MD had discussed with the patient at length that the urinalysis was important to see if she had evidence of a UTI there pyelonephritis, which would explain her urinary hesitation, frequency, sensation of being unable to empty her bladder, generalized fatigue. - Vital Signs Vital signs: Temp Pulse Resp BP Pulse Ox 97.5 F 108 H 18 140/88 H 100 02/24/20 23:46 02/24/20 23:46 02/24/20 23:46 02/24/20 23:46 02/24/20 23:46 - Laboratory Result Diagrams: 02/25/20 00:07 02/25/20 00:07 Laboratory results interpreted by me: 02/25/20 02/25/20 00:07 00:07 RDW 14.8 H Eos % (Auto) 7.6 H Absolute Eos (auto) 0.8 H Seg Neutrophils % 41.8 L BUN 21 H - Diagnostic Test Radiology reviewed: Reports reviewed Discharge - Discharge Clinical Impression: Urinary frequency, Urinary hesitancy, Nausea Fatigue Qualifiers: Fatigue type: unspecified Qualified Code(s): R53.83 - Other fatigue Headache Qualifiers: Headache type: unspecified Headache chronicity pattern: acute headache Intractability: not intractable Qualified Code(s): R51.9 - Headache, unspecified Disposition: ELOPED
--- NOTE | 2020-02-25 02:21 | RADIOLOGY REPORT (SQ) ---
CLINICAL HISTORY: dyspnea COMPARISON: 02/04/2017. TECHNIQUE: XR CHEST 1 VIEW 02/25/2020 1:29 AM LICENSED PHARMACIST FINDINGS: Cardiac silhouette is normal in size. Lungs are clear without consolidation, atelectasis, mass or edema. There is no pleural effusion. There is no pneumothorax. There are no acute osseous findings. IMPRESSION: Clear lungs.
== END 2020-02-25 04:10 | disposition left against medical advice (07) ==
LOC: ER 23:43
DX: R39.11 Hesitancy of micturition (principal); R35.0 Frequency of micturition; R53.83 Other fatigue; R11.0 Nausea; R51.9 Headache, unspecified; M79.10 Myalgia, unspecified site; R06.02 Shortness of breath; R10.30 Lower abdominal pain, unspecified; R30.0 Dysuria; R53.81 Other malaise; R53.1 Weakness; Z88.8 Allergy status to other drugs, medicaments and biological substances; F17.210 Nicotine dependence, cigarettes, uncomplicated; J45.909 Unspecified asthma, uncomplicated
CPT/HCPCS: 99281; 96361; 96374; 96375; 36415; 85025; 80053; 71045; J1885; J2405; J7030